=== PATIENT | male | born 1980 | race Caucasian/White ===

== ENCOUNTER 2025-04-09 10:02 | Emergency (ER) | payer OTHER ==
[~2025-04-09] VITALS: Ht 172.7 cm; Wt 97.0 kg
[2025-04-09 10:21] VITALS: TEMP 98.3
[2025-04-09] MEDS ORDERED: PREN-134 PO (10:31)
[2025-04-09] MEDS ORDERED: BUPR1TAB46 SL (10:31)
[2025-04-09] MEDS ORDERED: DIAZ-328 PO (10:31)
[2025-04-09] MEDS ORDERED: THIA100T80 PO (10:31)
[2025-04-09] MEDS ORDERED: LEVE-71 PO (10:31)
[2025-04-09] MEDS: ACETAMINOPHEN 500 MG TABLET PO ONE (10:54)
[2025-04-09] MEDS: MORPHINE SULFATE 2 MG/ML SYRINGE IVP ONE (12:10)
[2025-04-09 12:22] LABS: PLATELET COUNT (AUTO) 226 K/uL (150-450); RED BLOOD CELL COUNT(AUTO) 3.89 MIL/uL (4.50-5.90); RED CELL DISTRIBUTION WIDTH 16.6 % (11.5-14.5); WHITE BLOOD COUNT (AUTO) 8.2 K/uL (4.5-11.0)
[2025-04-09 12:33] LABS: CALCIUM, TOTAL 8.7 mg/dL (8.8-10.5); CREATININE 4.36 mg/dL (0.60-1.30); GLOMERULAR FILTR. RATE CALC 15.0 mL/min (>60); GLUCOSE,RANDOM 91.0 mg/dL (70-110); SODIUM SERUM 136.0 mmol/L (136-145)
[2025-04-09 12:40] LABS: UREA NITROGEN, BLOOD 44.0 mg/dL (7-18)
[2025-04-09 12:49] VITALS: BP 155/91; PULSE 71; RESP 16; O2SAT 99
== END 2025-04-09 13:08 | disposition short-term general hospital (02) ==
LOC: EMS 10:36
DX: S02.85XA Fracture of orbit, unspecified, initial encounter for closed fracture (principal); Z79.899 Other long term (current) drug therapy; Y08.89XA Assault by other specified means, initial encounter; Y93.89 Activity, other specified; Y92.89 Other specified places as the place of occurrence of the external cause; Y99.8 Other external cause status
CPT/HCPCS: 36573; 80048; 85025; 36415; 70450; 70486; 72125; 72128; 72131; 99285; 96374; J2270